=== PATIENT | female | born 1950 | race Caucasian/White ===

== ENCOUNTER → 2016-08-28 | Outpatient (CLI) | payer BC, MEDICARE ==
--- NOTE | 2016-08-31 11:08 | EM ---
24 HOUR DCG DATE OF SERVICE: AGE: 66Y SEX: F INDICATIONS: The basic rhythm is normal sinus rhythm with normal VA interval and QRS duration and normal ST-T waves. The average heart rate during the recording is 64 beats per minute with a minimum heart rate of 45 and maximum heart rate of 99 beats per minute is noted. Multiple frequent supraventricular atrophic beats are noted, and they occur in the form of couplets and triplets and intermittent short runs of nonsustained atrial tachycardia at a rate of 100 beats per minute were noted. ( ) PVCs are recorded. No symptoms were recorded by the patient.
== END | disposition home or self-care (01) ==
LOC: RADECHMAIN 11:56
PROVIDERS: ATTEND Internal Medicine
DX: I48.91 Unspecified atrial fibrillation (principal)
CPT/HCPCS: 93225; 93226

== ENCOUNTER → 2016-10-10 | Outpatient (CLI) | payer MEDICARE ==
--- NOTE | 2016-10-10 09:47 | BD ---
EXAMINATION TYPE: MG DEXA axial skeleton. DATE OF EXAM: 10/10/2016 8:14 AM COMPARISON: NONE CLINICAL HISTORY: Height: 64.5 IN Weight: 167 LBS FRAX RISK QUESTIONS: Alcohol (3 or more units per day): NO Family History (Parent hip fracture): YES MOTHER Glucocorticoids (More than 3mos): NO (Ex: prednisone, prednisolone, methylprednisolone, dexamethasone, and hydrocortisone). History of Fracture in Adulthood: NO Secondary Osteoporosis: 1. Type 1 Diabetes: NO 2. Hyperthyroidism: NO 3. Menopause before 45: NO 4. Malnutrition: NO 5. Chronic liver disease: NO Rheumatoid Arthritis: NO Current Tobacco Use: NO RISK FACTORS HISTORY OF: Active: YES Postmenopausal woman: AGE 53 MEDICATIONS: Additional Medications: MULTI VIT, HIGH BLOOD PRESSURE MED EXAM MEASUREMENTS: Bone mineral densitometry was performed using the [facility]. Bone mineral density as measured about the Lumbar spine is: ----- L1-L4(G/cm2): 1.092 T Score Values are as follows: ----- L2: -1.7 ----- L3: -0.5 ----- L4: 0.1 ----- L1-L4: -0.7 Bone mineral density BASELINE Bone mineral density about the R hip (g/cm2): 0.842 Bone mineral density about the L hip (g/cm2): 0.822 T Score values are as follows: -----R Neck: -1.4 -----L Neck: -1.6 -----R Intertrochanter: -2.1 -----L Intertrochanter: -2.2 Bone mineral density BASELINE IMPRESSION: Osteopenia (T Score between -2.5 and -1 as noted by T score values There is slightly increased risk of fracture and the patient may be considered for treatment. Re-Screen 1-2 years. NOTE: T-SCORE=SD OF THE YOUNG ADULT MEAN.
--- NOTE | 2016-10-11 09:28 | MM ---
Reason for exam: screening (asymptomatic). Last mammogram was performed 7 months ago. History: Patient is postmenopausal. Physical Findings: A clinical breast exam by your physician is recommended on an annual basis and results should be correlated with mammographic findings. MG 3D Screening Mammo W/Cad Bilateral CC and MLO view(s) were taken. Prior study comparison: March 06, 2016, left breast MG 3d diag mammo w/cad LT. September 01, 2015, bilateral MG screening mammo w CAD. June 09, 2014, bilateral MG screening mammo w CAD. March 03, 2013, bilateral digital screening mammo w/CAD. There are scattered fibroglandular densities. No significant changes when compared with prior studies. ASSESSMENT: Negative, BI-RAD 1 RECOMMENDATION: Routine screening mammogram of both breasts in 1 year.
== END | disposition home or self-care (01) ==
LOC: RADMAMWWP 08:12
PROVIDERS: ATTEND Internal Medicine
DX: Z12.31 Encounter for screening mammogram for malignant neoplasm of breast (principal); M85.80 Other specified disorders of bone density and structure, unspecified site
CPT/HCPCS: 77080; 77063; G0202

== ENCOUNTER → 2017-12-10 | Outpatient (CLI) | payer MEDICARE ==
--- NOTE | 2017-12-11 13:03 | MM ---
Reason for exam: screening (asymptomatic). Last mammogram was performed 1 year and 2 months ago. History: Patient is postmenopausal. Physical Findings: A clinical breast exam by your physician is recommended on an annual basis and results should be correlated with mammographic findings. MG 3D Screening Mammo W/Cad Bilateral CC and MLO view(s) were taken. Prior study comparison: October 10, 2016, bilateral MG 3d screening mammo w/cad. March 06, 2016, left breast MG 3d diag mammo w/cad LT. There are scattered fibroglandular densities. No significant changes when compared with prior studies. ASSESSMENT: Benign, BI-RAD 2 RECOMMENDATION: Routine screening mammogram of both breasts in 1 year.
== END | disposition home or self-care (01) ==
LOC: RADMAMWWP 09:35
PROVIDERS: ATTEND Obstetrics & Gynecology
DX: Z12.31 Encounter for screening mammogram for malignant neoplasm of breast (principal)
CPT/HCPCS: 77063; 77067

== ENCOUNTER → 2019-04-14 | Outpatient (CLI) | payer MEDICARE ==
--- NOTE | 2019-04-15 10:23 | MM ---
Reason for exam: screening (asymptomatic). Last mammogram was performed 1 year and 4 months ago. History: Patient is postmenopausal. Physical Findings: A clinical breast exam by your physician is recommended on an annual basis and results should be correlated with mammographic findings. MG 3D Screening Mammo W/Cad Bilateral CC and MLO view(s) were taken. XCCL view(s) were taken of the left breast. Prior study comparison: December 10, 2017, bilateral MG 3d screening mammo w/cad. October 10, 2016, bilateral MG 3d screening mammo w/cad. The breast tissue is heterogeneously dense. This may lower the sensitivity of mammography. Benign appearing bilateral calcifications. No suspicious abnormality. No significant changes when compared with prior studies. ASSESSMENT: Benign, BI-RAD 2 RECOMMENDATION: Routine screening mammogram of both breasts in 1 year.
== END | disposition home or self-care (01) ==
LOC: RADMAMWWP 12:29
PROVIDERS: ATTEND Internal Medicine
DX: Z12.31 Encounter for screening mammogram for malignant neoplasm of breast (principal)
CPT/HCPCS: 77063; 77067

== ENCOUNTER → 2019-09-02 | Outpatient (CLI) | payer MEDICARE ==
--- NOTE | 2019-09-02 18:28 | CONS ---
CONSULTATION REASON FOR CONSULTATION: Sleep apnea. This 69-year-old female patient has a history of paroxysmal atrial fibrillation. The patient underwent cardiac ablation by Dr. Adames in [place] back in 2007. She did well for quite some time. Subsequently she started having paroxysmal atrial fibrillation. The patient is currently in sinus rhythm. Nevertheless, she has been evaluated by Dr. Saini at [facility] and the patient is being considered for another ablation. During the course of her treatment she was asked to undergo a sleep study to rule out obstructive sleep apnea. She does have snoring. She grinds her teeth. She goes to bed around midnight. She wakes up at 8:00 in the morning. No major hypersomnia or sleepiness during the day. Her weight is stable at around 170. She prefers to sleep on her side. She takes a brief nap in the afternoon. No history of any motor vehicle accident because of feeling drowsy or sleepy. Denies waking up in the middle of the night gasping for air or choking sensation. PAST MEDICAL HISTORY: Paroxysmal atrial fibrillation and hypertension. PAST SURGICAL HISTORY: Past surgical history includes cardiac ablation of atrial fibrillation. This was done in 2001. DRUG ALLERGIES: CONTRAST DYE, ZOLOFT AND CARDIZEM. OUTPATIENT MEDICATION LIST: Outpatient medication list includes metoprolol ER 25 mg 2 in the morning, once in the afternoon, ramipril 10 mg p.o. daily, Eliquis 5 mg p.o. twice a day. SOCIAL HISTORY: Nonsmoker. No history of alcoholism. No history of IV drugs. FAMILY HISTORY: Negative for sleep apnea. REVIEW OF SYSTEMS: Fourteen-point review of system was done. Positive findings were all mentioned above in the history of present illness. The patient has no choking or gasping for air sensation at nighttime. No restlessness in the lower extremities. No sleepwalking or sleeptalking. She does grind her teeth. No anxiety, no panic, no palpitations, no heartburn. No depression. PHYSICAL EXAMINATION: VITAL SIGNS: BP is 197/75, pulse 65, respirations 16, temperature 98.1, saturation 98% on room air. Height is 5 feet 4 inches, weight 169 and neck size is 14-1/2 inches. Her current Lewisburg Score is 14. GENERAL APPEARANCE: Calm, comfortable. HEAD: Atraumatic, normocephalic. NECK: Supple. No JVD. No goiter or neck masses. Mallampati class I. LUNGS: Clear to auscultation. HEART: Heart sounds are regular rate and rhythm. Normal S1, S2. No S3, S4. No murmurs. ABDOMEN: Soft, nontender. No organomegaly. EXTREMITIES: No edema. No cyanosis or clubbing. NEUROLOGIC: Alert and oriented. No focal neurological deficits. PSYCHIATRIC: Negative for anxiety or depression. IMPRESSION: 1. Obstructive sleep apnea clinically suspected. Currently under investigation. She does have snoring and some increased fatigue and sleepiness. Lewisburg score is 14. 2. Paroxysmal atrial fibrillation, currently in sinus rhythm. The patient is undergoing a cardiac ablation procedure at [facility]. 3. Hypertension with acute hypertensive reaction today, probably due to white coat effect. This is something that she needs to follow up on on an outpatient basis. PLAN: 1. Proceed with a screening polysomnogram. 2. Implement good sleep hygiene measures. 3. Will review the results and will get back to the patient if further treatment is needed. MMODL / IJN: [id number] /
== END | disposition home or self-care (01) ==
LOC: SLEEP 14:03
PROVIDERS: ATTEND Internal Medicine Critical Care Medicine
DX: R06.83 Snoring (principal); R53.83 Other fatigue; I48.0 Paroxysmal atrial fibrillation; I10 Essential (primary) hypertension; Z98.890 Other specified postprocedural states; Z79.01 Long term (current) use of anticoagulants; Z79.899 Other long term (current) drug therapy; Z91.041 Radiographic dye allergy status; Z88.2 Allergy status to sulfonamides; Z88.8 Allergy status to other drugs, medicaments and biological substances
CPT/HCPCS: 99211

== ENCOUNTER → 2019-09-08 | Outpatient (CLI) | payer MEDICARE ==
[2019-09-08 08:59] LABS: HCT 44.7 % (34.0-46.0); HGB 14.3 gm/dL (11.4-16.0); MCH 29.4 pg (25.0-35.0); MCHC 32.1 g/dL (31.0-37.0); MCV 91.6 fL (80.0-100.0); Mean Platelet Volume 7.7; Platelet Count 246 k/uL (150-450); RBC 4.88 m/uL (3.80-5.40); RDW 12.4 % (11.5-15.5); WBC 7.1 k/uL (3.8-10.6)
[2019-09-08 09:07] LABS: Prothrombin Time 10.2 sec (9.0-12.0)
[2019-09-08 09:12] LABS: African American GFR (CKD) >90 (>60 ml/min/1.73 sqM); Anion Gap 9 mmol/L; Blood Urea Nitrogen 24 mg/dL (7-17); Calcium 9.6 mg/dL (8.4-10.2); Carbon Dioxide 27 mmol/L (22-30); Chloride 104 mmol/L (98-107); Glucose 106 mg/dL (74-99); Non-African American GFR(CKD) 90 (>60 ml/min/1.73 sqM); Potassium 4.2 mmol/L (3.5-5.1); Sodium 140 mmol/L (137-145)
== END | disposition home or self-care (01) ==
LOC: LABWHC1 07:59
PROVIDERS: ATTEND Internal Medicine Cardiovascular Disease
DX: I48.0 Paroxysmal atrial fibrillation (principal)
CPT/HCPCS: 36415; 80048; 85027; 85610

== ENCOUNTER → 2020-07-26 | Outpatient (CLI) | payer MEDICARE ==
--- NOTE | 2020-07-27 11:47 | MM ---
Reason for exam: screening (asymptomatic). Last mammogram was performed 1 year and 3 months ago. History: Patient is postmenopausal. Physical Findings: A clinical breast exam by your physician is recommended on an annual basis and results should be correlated with mammographic findings. MG 3D Screening Mammo W/Cad Bilateral CC and MLO view(s) were taken. Prior study comparison: April 14, 2019, bilateral MG 3d screening mammo w/cad. December 10, 2017, bilateral MG 3d screening mammo w/cad. There are scattered fibroglandular densities. No significant changes when compared with prior studies. ASSESSMENT: Benign, BI-RAD 2 RECOMMENDATION: Routine screening mammogram of both breasts in 1 year.
== END | disposition home or self-care (01) ==
LOC: RADMAMWWP 11:33
PROVIDERS: ATTEND Internal Medicine
DX: Z12.31 Encounter for screening mammogram for malignant neoplasm of breast (principal)
CPT/HCPCS: 77063; 77067

== ENCOUNTER → 2020-10-04 | Outpatient (CLI) | payer MEDICARE ==
--- NOTE | 2020-10-04 12:37 | XR ---
Lumbar spine HISTORY: Pain 3 views lumbar spine Bone mineralization is reduced. There is a spinal curvature. Anterolisthesis grade 1 at L4-5. There i s multilevel spondylosis. Loss of disc height greatest at L5-S1 with associated vacuum phenomenon. Sc lerosis is present posterior elements. IMPRESSION: Degenerative disc disease, facet arthropathy, spinal listhesis, osteopenia and spinal cur vature.
--- NOTE | 2020-10-04 12:38 | XR ---
Bilateral hips HISTORY: Pain 2 views of each hip submitted. Calcification present in the pelvis may be related to fibroid. Bone mineralization is mildly reduced. Joint spaces and alignment are maintained, no fracture or dislocation. Soft tissue calcification pre sent in the proximal right lower extremity laterally may be due to injection granuloma. IMPRESSION: No acute abnormality.
== END | disposition home or self-care (01) ==
LOC: RADXRMAIN 12:05
PROVIDERS: ATTEND Internal Medicine
DX: M51.36 Other intervertebral disc degeneration, lumbar region (principal); M25.551 Pain in right hip; M47.816 Spondylosis without myelopathy or radiculopathy, lumbar region; M25.552 Pain in left hip; M43.16 Spondylolisthesis, lumbar region; M85.88 Other specified disorders of bone density and structure, other site; M43.8X6 Other specified deforming dorsopathies, lumbar region
CPT/HCPCS: 72100; 73521

== ENCOUNTER → 2021-07-12 | Outpatient (CLI) | payer MEDICARE ==
--- NOTE | 2021-07-12 15:44 | BD ---
EXAMINATION TYPE: Axial Bone Density DATE OF EXAM: 07/12/2021 COMPARISON: 10/10/2016 CLINICAL HISTORY: Height: 64 IN Weight: 168 LBS FRAX RISK QUESTIONS: Family History (Parent hip fracture): YES MOTHER RISK FACTORS HISTORY OF: Active: YES Postmenopausal woman: AGE 56 MEDICATIONS: Additional Medications: MULTI VIT, A FIB MEDS EXAM MEASUREMENTS: Bone mineral densitometry was performed using the [employer] [facility]. Bone mineral density as measured about the Lumbar spine is: ----- L1-L4(G/cm2): 1.053 T Score Values are as follows: ----- L2: -1.9 ----- L3: -0.9 ----- L4: -0.3 ----- L1-L4: -1.1 Bone mineral density has: Decreased -3.5% since study of: 10/10/2016 Bone mineral density about the R hip (g/cm2): 0.787 Bone mineral density about the L hip (g/cm2): 0.784 T Score values are as follows: -----R Neck: -1.8 -----L Neck: -1.8 -----R Total: -1.6 -----L Total: -1.6 Bone mineral density has: Decreased -4.6% since study of: 10/10/2016 IMPRESSION: Osteopenia (T Score between -2.5 and -1). There is slightly increased risk of fracture and the patient may be considered for treatment. Re-Screen 2-5 years. NOTE: T-SCORE=SD OF THE YOUNG ADULT MEAN.
== END | disposition home or self-care (01) ==
LOC: RADBDWWP 09:55
PROVIDERS: ATTEND Internal Medicine
DX: Z13.820 Encounter for screening for osteoporosis (principal); M85.80 Other specified disorders of bone density and structure, unspecified site
CPT/HCPCS: 77080

== ENCOUNTER → 2021-10-26 | Outpatient (CLI) | payer MEDICARE ==
--- NOTE | 2021-10-27 11:38 | MM ---
Reason for exam: screening (asymptomatic). Last mammogram was performed 1 year and 3 months ago. History: Patient is postmenopausal. Physical Findings: A clinical breast exam by your physician is recommended on an annual basis and results should be correlated with mammographic findings. MG 3D Screening Mammo W/Cad Bilateral CC and MLO view(s) were taken. Prior study comparison: July 26, 2020, bilateral MG 3d screening mammo w/cad. April 14, 2019, bilateral MG 3d screening mammo w/cad. The breast tissue is heterogeneously dense. This may lower the sensitivity of mammography. Stable benign calcifications. There is no discrete abnormality. No significant changes when compared with prior studies. ASSESSMENT: Benign, BI-RAD 2 RECOMMENDATION: Routine screening mammogram of both breasts in 1 year.
== END | disposition home or self-care (01) ==
LOC: RADMAMWWP 09:04
PROVIDERS: ATTEND Internal Medicine
DX: Z12.31 Encounter for screening mammogram for malignant neoplasm of breast (principal)
CPT/HCPCS: 77063; 77067

== ENCOUNTER → 2023-03-19 | Outpatient (CLI) | payer MEDICARE ==
[2023-03-19 16:33] LABS: BUN/Creat Ratio 17.89 Ratio (12.00-20.00); Blood Urea Nitrogen 16.1 mg/dL (9.0-27.0); Chloride 105 mmol/L (96-109); Chol/HDL Ratio 1.99 Ratio; Glucose 95 mg/dL (70-110); LDL Cholesterol,Calculated 66.4 mg/dL (0.0-131.0); Potassium 4.4 mmol/L (3.5-5.5); Sodium 143 mmol/L (135-145); VLDL Calculation 15.72 mg/dL (5.00-40.00)
[2023-03-19 16:34] LABS: ALT 24 U/L (8-44); AST 21 U/L (13-35); Albumin 4.8 d/dL (3.8-4.9); Albumin/Globulin Ratio 2.67 Ratio (1.60-3.17); Alkaline Phosphatase 104 U/L (41-126); Bilirubin, Conjugated <0.20 mg/dL (0.20-0.40); Bilirubin,Unconjugated >0.30 mg/dL (0.20-1.00); Calcium 9.7 mg/dL (8.7-10.3); Carbon Dioxide 26.5 mmol/L (21.6-31.8); Globulin 1.8 d/dL (1.6-3.3); Total Bilirubin 0.5 mg/dL (0.3-1.2); Total Protein 6.6 d/dL (6.2-8.2)
[2023-03-19 17:40] LABS: Basophils # (A) 0.05 X 10*3/uL (0.00-0.10); Basophils % (A) 0.8 %; Eosinophils # (A) 0.06 X 10*3/uL (0.04-0.35); HCT 42.7 % (37.2-46.3); HGB 13.3 d/dL (12.0-15.0); Lymphocytes # (A) 0.98 X 10*3/uL (0.90-5.00); Lymphocytes % (A) 16.5 %; MCH 30.2 pg (27.0-32.0); MCHC 31.1 d/dL (32.0-37.0); Mean Platelet Volume 9.9 FL (9.5-12.2); Monocytes # (A) 0.43 X 10*3/uL (0.20-1.00); Monocytes % (A) 7.2 %; NRBC Per 100 WBC 0 X 10*3/uL (0.00-0.01); Platelet Count 237 X 10*3/uL (140-440); RDW 12.8 % (11.5-14.5); WBC 5.95 X 10*3/uL (4.50-10.00)
== END | disposition home or self-care (01) ==
LOC: LABWHC1 11:00
PROVIDERS: ATTEND Family Medicine
DX: I48.0 Paroxysmal atrial fibrillation (principal); Z79.899 Other long term (current) drug therapy
CPT/HCPCS: 36415; 80048; 80061; 80076; 84443; 85025

== ENCOUNTER → 2023-04-17 | Outpatient (CLI) | payer MEDICARE | LOC: CPPFTMAIN 07:22 | PROVIDERS: ATTEND Internal Medicine Cardiovascular Disease | DX: Z79.899 Other long term (current) drug therapy (principal); Z88.8 Allergy status to other drugs, medicaments and biological substances | CPT/HCPCS: 94060; 94726; 94729 ==

== ENCOUNTER → 2023-04-25 | Outpatient (CLI) | payer MEDICARE ==
--- NOTE | 2023-04-26 11:06 | MM ---
Reason for Exam: Screening (asymptomatic). Last mammogram was performed 1 year(s) and 6 month(s) ago. Patient History: Menarche at age 14. First Full-Term at age 31. Late child-bearing (after 30). Postmenopausal. Risk Values: Radha 5 year model risk: 2.4%. NCI Lifetime model risk: 6.6%. Prior Study Comparison: 04/14/2019 Bilateral Screening Mammogram, [facility]. 07/26/2020 Bilateral Screening Mammogram, [facility]. 10/26/2021 Bilateral Screening Mammogram, [facility]. Tissue Density: The breast tissue is heterogeneously dense. This may lower the sensitivity of mammography. Findings: Analyzed By CAD. Right breast: Focal mass, 12 cm from the nipple measuring 12 mm on CC view and 10.5 cm from the nipple on MLO view in the upper outer quadrant. Left breast: There is no suspicious group of microcalcifications or new suspicious mass. Overall Assessment: Incomplete: need additional imaging evaluation, BI-RAD 0 Management: Diagnostic Breast Ultrasound of the right breast. [facility] will attempt to contact patient to return for supplemental views and ultrasound if indicated. Patient should continue monthly self-breast exams. A clinical breast exam by your physician is recommended on an annual basis. This exam should not preclude additional follow-up of suspicious palpable abnormalities. Note on Radha scores and lifetime risk: 1. A Radha score greater than 3% is considered moderate risk. If this is the case, consider specialist referral to assess eligibility for a risk reducing agent. 2. If overall lifetime risk for the development of breast cancer is 20% or higher, the patient may qualify for future screening with alternating mammogram and breast MRI. Electronically signed and approved by: Bairon Trinidad DO
== END | disposition home or self-care (01) ==
LOC: RADMAMWWP 08:17
PROVIDERS: ATTEND Obstetrics & Gynecology
DX: Z12.31 Encounter for screening mammogram for malignant neoplasm of breast (principal); Z78.0 Asymptomatic menopausal state
CPT/HCPCS: 77063; 77067

== ENCOUNTER → 2023-05-03 | Outpatient (CLI) | payer MEDICARE ==
--- NOTE | 2023-05-03 13:36 | USB ---
Reason for Exam: Additional evaluation requested from abnormal screening. Patient History: Menarche at age 14. First Full-Term at age 31. Late child-bearing (after 30). Postmenopausal. Risk Values: Radha 5 year model risk: 2.4%. NCI Lifetime model risk: 6.3%. Technique: Method: Targeted. Prior Study Comparison: 07/26/2020 Bilateral Screening Mammogram, [facility]. 10/26/2021 Bilateral Screening Mammogram, [facility]. 04/25/2023 Bilateral MG 3D screening mammo w/cad, [facility]. Findings: The upper outer quadrant of the right breast, the axilla of the right breast and the retroareolar of the right breast were scanned. Technique utilized:US breast workup limited RT Image; Ultrasound imaging of: Area of concern, retroareolar region and axilla. There is a hypoechoic mass with focus of internal color Doppler flow measuring 9 x 9 x 5 mm at 10:00 9 cm from the nipple. Additional tiny anechoic cyst at 12:00 8 cm nipple. No suspicious lymph nodes identified. Overall Assessment: Highly suggestive of malignancy, BI-RAD 5 Management: Ultrasound Core Biopsy of the right breast. A clinical breast exam by your physician is recommended on an annual basis and results should be correlated with mammographic findings. This exam should not preclude additional follow-up of suspicious palpable abnormalities. Results were given to the patient verbally at the time of exam. Electronically signed and approved by: Bairon Trinidad DO
== END | disposition home or self-care (01) ==
LOC: RADUSWWP 12:55
PROVIDERS: ATTEND Obstetrics & Gynecology
DX: R92.8 Other abnormal and inconclusive findings on diagnostic imaging of breast (principal); Z78.0 Asymptomatic menopausal state

== ENCOUNTER → 2023-05-15 | Day surgery (SDC) | payer MEDICARE | LOC: RADUSWWP 12:41 | PROVIDERS: ATTEND Surgery | DX: D05.11 Intraductal carcinoma in situ of right breast (principal) | CPT/HCPCS: 88305; 77065; 19083; A4648; 88341; 88342 ==

== ENCOUNTER 2023-06-22 06:11 | Day surgery (SDC) | payer MEDICARE ==
[~2023-06-22 06:11] MED LIST: DEXAMETHASONE SOD PHOSPHATE 4 MG/ML 1 ML VIAL IV ONE; HEPARIN SODIUM,PORCINE 5,000 UNIT/ML 1 ML VIAL SQ PRN; LACTATED RINGERS 1,000 ML IV SCH; LIDOCAINE 1% (10MG/ML) FOR IV START INTRADERMA PRN; ONDANSETRON 4 MG/2 ML VIAL IVP ONE; droPERidol 5 MG/2 ML VIAL IVP ONE
[2023-06-22] MEDS ORDERED: HYDROmorphone 0.5 MG/0.5 ML SYRINGE IVP PRN (07:00)
[2023-06-22] MEDS ORDERED: ALPRAZolam 0.25 MG TAB ONE (07:05)
[2023-06-22] MEDS: ACETAMINOPHEN TAB 500 MG TAB PO PRN ×2 (07:08→08:34)
[2023-06-22 07:27] LABS: Potassium 3.8 mmol/L (3.5-5.1)
--- NOTE | 2023-06-22 07:38 | P.NAPBC ---
NAPBC Queries - NAPBC Queries Was patient's case review presented at [facility] tumor board? If no, comment.: Yes Was patient's pathology reviewed at [facility]? If no, comment.: Yes Was breast conservation surgery offered? If no, comment.: Yes Was sentinel node biopsy offered? If no, comment.: Yes Was diagnosis confirmed by percutaneous core biopsy? If no, comment.: Yes Is patient mastectomy patient?: No Was a preop referral to reconstructive surgeon offered?: Yes Clinical Stage: 1
[2023-06-22] MEDS ORDERED: LIDOCAINE 1% INJ 10MG/ML (20 ML MDV) SQ ONE (07:48)
[2023-06-22 08:01] VITALS: RESP 16
[2023-06-22] MEDS ORDERED: PROPOFOL 10 MG/ML 20 ML VIAL IV ONE (10:34)
[2023-06-22] MEDS ORDERED: LIDOCAINE 1% INJ 10MG/ML (20 ML MDV) ONE (10:34)
[2023-06-22] MEDS ORDERED: MIDAZOLAM 2 MG/2 ML VIAL ONE (10:34)
[2023-06-22] MEDS ORDERED: fentaNYL (PF) 50 MCG/ML 2 ML AMP ONE (10:34)
[2023-06-22] MEDS ORDERED: BUPIVACAINE (PF) 0.25% 30 ML VIAL SQ ONE (11:01)
[2023-06-22] MEDS ORDERED: ACETAMINOPHEN TAB 325 MG TAB PO PRN (11:48)
[2023-06-22] MEDS ORDERED: NALOXONE 0.4 MG/ML 1 ML VIAL IV PRN (11:48)
--- NOTE | 2023-06-22 11:51 | P.OP ---
Date of Procedure: 06/22/23 Procedure(s) Performed: PREOPERATIVE DIAGNOSIS: Right breast cancer POSTOPERATIVE DIAGNOSIS: Same PROCEDURE: Right Breast wire localization lumpectomy SURGEON: Michael EBL: Minimal ANESTHESIA: General COMPLICATIONS: None OPERATIVE PROCEDURE: Patient was placed on the operating room table in the supine position. The wire entrance site was then addressed. This was present at the 8:00 location. A curvilinear incision was made adjacent to the wire entrance site. I followed the wire down into the breast tissue. An adequate lumpectomy specimen then took place around the wire. Margins of 1.5-2 cm worth attempted to be achieved. Palpation of the specimen suggested that the medial margin was somewhat close. I took an additional margin medially and this margin was painted the appropriate color on the new margin side. The initial specimen was also painted the appropriate 6 colors. Clips were used to identify the lumpectomy cavity. The clip was confirmed to be within the lumpectomy specimen by radiology. The subcutaneous tissues were closed using 3-0 Vicryl sutures. The skin was closed using a running 4-0 Monocryl stitch. Skin glue was then applied. DISPOSITION: Stable to recovery room
[2023-06-22 11:54] VITALS: TEMP 97.1
[2023-06-22 13:58] VITALS: BP 161/70; PULSE 55
--- NOTE | 2023-06-29 13:50 | MM ---
Pathology Description: Location: 9 o'clock, posterior, axillary tail. Approach: Lateral to Medial Needle Type: 7 cm Kopan wire loc no sen node...clip carla us bx is coil hydromark The procedure of needle localization with wire placement and than surgical excision was explained to the patient. Benefits, alternatives, and risks were discussed. An informed consent was then obtained. The shortest pathway for procedure was chosen. The overlying skin was prepped and draped in usual sterile fashion. Lidocaine was used as anesthetic into the skin and subcutaneous tissue up to the level of area of concern. A 7 cm needle was used. It was placed via a lateral approach under mammographic guidance. Subsequent 90 degrees mammogram show the needle to be in satisfactory position relative to the targeted area. At this point, wire was placed and the needle was withdrawn. The wire was fixed to patient's skin. Images were marked for surgeon. The patient tolerated the procedure well without any immediate complication. The patient was kept in the radiology department for short stay after the procedure and then taken to surgery for surgical excision. There is and wire are identified in specimen mammogram. The patient was kept in hospital for short stay after the procedure and then discharged home in stable condition. Impression: Successful, uncomplicated needle localization with wire placement and surgical excision of mass in the right breast, full pathology results to follow. Pathology Results: Result: Malignant, Invasive ductal carcinoma. A. RIGHT BREAST, NEW MEDIAL MARGIN, EXCISION: Benign breast tissue with fibrocystic change having columnar cell change, usual ductal hyperplasia and focal fibroadenomatoid hyperplasia and focal microcalcification. New medial margin, negative for malignancy. Focal sclerosing adenosis present. B. RIGHT BREAST, LUMPECTOMY: Invasive well differentiated ductal carcinoma with focal microcalcification, Grade 1 (See Surgical Pathology Cancer Case Summary and Comment). Rare focus of intraductal atypia, cannot exclude intermediate grade DCIS. All margins negative for in situ or invasive carcinoma. Overall Assessment: Malignant Management: Surgical Consultation of the right breast. Electronically signed and approved by: Bairon Trinidad DO
== END 2023-06-22 13:30 | disposition home or self-care (01) ==
LOC: OR 06:11
PROVIDERS: ATTEND Surgery
DX: C50.911 Malignant neoplasm of unspecified site of right female breast (principal); N60.21 Fibroadenosis of right breast; R92.0 Mammographic microcalcification found on diagnostic imaging of breast; I10 Essential (primary) hypertension; E78.5 Hyperlipidemia, unspecified; I48.91 Unspecified atrial fibrillation; Z85.828 Personal history of other malignant neoplasm of skin; Z79.01 Long term (current) use of anticoagulants; Z88.8 Allergy status to other drugs, medicaments and biological substances; Z88.9 Allergy status to unspecified drugs, medicaments and biological substances; Z91.041 Radiographic dye allergy status
CPT/HCPCS: 19301; 80051; 88307; 76098; 19281; C1819; J2250; J1100; J0690; J2405; J2001; J3010; J2704; J0665

== ENCOUNTER → 2023-11-13 | Outpatient (CLI) | payer MEDICARE ==
--- NOTE | 2023-11-13 16:13 | BD ---
EXAMINATION TYPE: Axial Bone Density DATE OF EXAM: 11/13/2023 CLINICAL HISTORY: 73 years old Female. ICD-10 CODE: M81.0 AGE-RELATED OSTEOPOROSIS W/O CURRENT PATHO LO Height: 63.5" Weight: 164lbs FRAX RISK QUESTIONS: Alcohol (3 or more units per day): No Family History (Parent hip fracture): Yes, mother Glucocorticoids (More than 3mos): No (Ex: prednisone, prednisolone, methylprednisolone, dexamethasone, and hydrocortisone). History of Fracture in Adulthood: No Secondary Osteoporosis: 1. Type 1 Diabetes: No 2. Hyperthyroidism: No 3. Menopause before 45: No 4. Malnutrition: No 5. Chronic liver disease: No Rheumatoid Arthritis: No Current Tobacco Use: No RISK FACTORS HISTORY OF: Hip Fracture (Right/Left): No Spine Fracture: No History of Wrist Fracture: No Surgery to Spine/Hip(right/left)/Wrist (right/left): No MEDICATIONS: Thyroid Medications: No Osteoporosis Medications: No EXAM MEASUREMENTS: Bone mineral densitometry was performed using the [employer] [facility]. Bone mineral density as measured about the Lumbar spine is: ----- L1-L4(G/cm2): 1.085 T Score Values are as follows: ----- L1: -1.7 ----- L2: -1.7 ----- L3: -0.4 ----- L4: 0.3 ----- L1-L4: -0.8 Z Score Values are as follows: ----- L1: -0.3 ----- L2: -0.3 ----- L3: 1.0 ----- L4: 1.7 ----- L1-L4: 0.6 Bone mineral density has: increased 3.0% since study of: 07/12/2021 Bone mineral density about the R hip (g/cm2): 0.776 Bone mineral density about the L hip (g/cm2): 0.784 T Score values are as follows: -----R Neck: -1.8 -----L Neck: -1.6 -----R Total: -1.8 -----L Total: -1.8 Z Score values are as follows: -----R Neck: -0.2 -----L Neck: 0.0 -----R Total: -0.5 -----L Total: -0.4 Bone mineral density has: decreased -2.7% since study of: 07/12/2021 FRAX%s: The graph provided illustrates a 18.6% chance for a major osteoporotic fx and a 7.1% chance f or the hips probability for fx in 10 years time. IMPRESSION: Osteopenia (T Score between -2.5 and -1). There is slightly increased risk of fracture and the patient may be considered for treatment. Re-Screen 2-5 years. NOTE: T-SCORE=SD OF THE YOUNG ADULT MEAN.
== END | disposition home or self-care (01) ==
LOC: RADBDWWP 12:25
PROVIDERS: ATTEND Internal Medicine Hematology & Oncology
DX: C50.411 Malignant neoplasm of upper-outer quadrant of right female breast (principal); M85.89 Other specified disorders of bone density and structure, multiple sites; I48.91 Unspecified atrial fibrillation; M19.90 Unspecified osteoarthritis, unspecified site; I10 Essential (primary) hypertension; Z71.3 Dietary counseling and surveillance
CPT/HCPCS: 77080

== ENCOUNTER → 2023-12-06 | Outpatient (CLI) | payer MEDICARE ==
[2023-12-06 12:28] LABS: INR 1.1 (<1.2); Partial Thromboplastin Time 27.2 sec (22.0-30.0); Prothrombin Time 11.4 sec (10.0-12.5)
[2023-12-06 15:42] LABS: ALT 33 U/L (8-44); AST 21 U/L (13-35); Albumin 4.8 g/dL (3.8-4.9); Albumin/Globulin Ratio 2.67 Ratio (1.60-3.17); Alkaline Phosphatase 118 U/L (41-126); BUN/Creat Ratio 23.25 Ratio (12.00-20.00); Blood Urea Nitrogen 18.6 mg/dL (9.0-27.0); Calcium 9.9 mg/dL (8.7-10.3); Carbon Dioxide 26.4 mmol/L (21.6-31.8); Chloride 105 mmol/L (96-109); Globulin 1.8 g/dL (1.6-3.3); Glucose 95 mg/dL (70-110); Potassium 4.1 mmol/L (3.5-5.5); Sodium 144 mmol/L (135-145); Total Bilirubin 0.6 mg/dL (0.3-1.2); Total Protein 6.6 g/dL (6.2-8.2)
[2023-12-06 16:02] LABS: Basophils # (A) 0.04 X 10*3/uL (0.00-0.10); Basophils % (A) 0.7 %; Eosinophils # (A) 0.07 X 10*3/uL (0.04-0.35); Eosinophils % (A) 1.2 %; HCT 44.5 % (37.2-46.3); HGB 14.1 g/dL (12.0-15.0); Lymphocytes # (A) 0.82 X 10*3/uL (0.90-5.00); Lymphocytes % (A) 14.1 %; MCH 31.1 pg (27.0-32.0); MCHC 31.7 g/dL (32.0-37.0); MCV 98.2 FL (80.0-97.0); Monocytes % (A) 8.6 %; NRBC Per 100 WBC 0 X 10*3/uL (0.00-0.01); Neutrophils # (A) 4.36 X 10*3/uL (1.80-7.70); Neutrophils % (A) 74.9 %; Platelet Count 247 X 10*3/uL (140-440); RBC 4.53 X 10*6/uL (4.10-5.20); RDW 13.3 % (11.5-14.5); WBC 5.82 X 10*3/uL (4.50-10.00)
== END | disposition home or self-care (01) ==
LOC: LABWHC1 11:14
PROVIDERS: ATTEND Family Medicine
DX: Z01.812 Encounter for preprocedural laboratory examination (principal)
CPT/HCPCS: 36415; 80053; 83036; 85025; 85610; 85730

== ENCOUNTER → 2024-04-28 | Outpatient (CLI) | payer MEDICARE ==
--- NOTE | 2024-04-28 11:30 | MM ---
Reason for Exam: Additional evaluation requested from prior study. Last screening mammogram was performed 12 month(s) ago. Patient History: Menarche at age 14. First Full-Term at age 31. Late child-bearing (after 30). Postmenopausal. Breast cancer, right, age 73. Breast cancer, right, age 73. 06/22/2023, Lumpectomy on the Right side. 06/22/2023, Malignant MG pre op needle loc RT on the right side. 05/15/2023, Malignant US biopsy breast VAD RT on the right side. Prior Study Comparison: 10/10/2016 Bilateral Screening Mammogram, [facility]. 12/10/2017 Bilateral Screening Mammogram, [facility]. 04/14/2019 Bilateral Screening Mammogram, [facility]. 07/26/2020 Bilateral Screening Mammogram, [facility]. 10/26/2021 Bilateral Screening Mammogram, [facility]. 04/25/2023 Bilateral MG 3D screening mammo w/cad, [facility]. 05/15/2023 Right MG diagnostic mammo RT wo CAD, [facility]. Tissue Density: There are scattered areas of fibroglandular density. Findings: Analyzed By CAD. Postsurgical and posttreatment changes right breast. Distortion lateral posterior aspect right cc view likely corresponds to postsurgical scar given the surgical clips in this area. Scattered benign round calcifications on both sides. Otherwise, no significant change. Overall Assessment: Probably benign, BI-RAD 3 Management: Diagnostic Mammogram of the right breast in 6 months. Results were given to the patient verbally at the time of exam. Patient should continue monthly self-breast exams. A clinical breast exam by your physician is recommended on an annual basis. This exam should not preclude additional follow-up of suspicious palpable abnormalities. [facility], , 04/28/2024 11:27 AM. Electronically signed and approved by: Bianca Pedraza M.D. Radiologist
== END | disposition home or self-care (01) ==
LOC: RADMAMWWP 10:39
PROVIDERS: ATTEND Surgery
CPT/HCPCS: 77062; 77066

== ENCOUNTER → 2024-12-15 | Outpatient (CLI) | payer MEDICARE ==
--- NOTE | 2024-12-15 11:17 | MM ---
Reason for Exam: Follow-up at short interval from prior study. Last screening mammogram was performed 8 month(s) ago. Patient History: Menarche at age 14. First Full-Term at age 31. Late child-bearing (after 31). Postmenopausal. Breast cancer, right, age 73. Breast cancer, right, age 73. 06/22/2023, Lumpectomy on the Right side. 06/22/2023, Malignant MG pre op needle loc RT on the right side. 05/15/2023, Malignant US biopsy breast VAD RT on the right side. Prior Study Comparison: 04/25/2023 Bilateral MG 3D screening mammo w/cad, [facility]. 05/15/2023 Right MG diagnostic mammo RT wo CAD, [facility]. 04/28/2024 Bilateral MG 3D diag mammo w/cad THAI, [facility]. Tissue Density: Right: There are scattered areas of fibroglandular density. Findings: Analyzed By CAD. Stable distortion and surgical clips in the posterior right breast outer upper aspect Stable distortion and surgical clips in the posterior right breast outer upper aspect. No suspicious new mass or worrisome group of microcalcifications. Overall Assessment: Benign, BI-RAD 2 Management: Diagnostic Mammogram of both breasts in 5 months. Back on annual bilateral schedule. Results were given to the patient verbally at the time of exam. Patient should continue monthly self-breast exams. A clinical breast exam by your physician is recommended on an annual basis. This exam should not preclude additional follow-up of suspicious palpable abnormalities. Note on Radha scores and lifetime risk: 1. A Radha score greater than 3% is considered moderate risk. If this is the case, consider specialist referral to assess eligibility for a risk reducing agent. 2. If overall lifetime risk for the development of breast cancer is 20% or higher, the patient may qualify for future screening with alternating mammogram and breast MRI. [facility], , 12/15/2024 11:15 AM. Electronically signed and approved by: Sid Corcoran M.D.
== END | disposition home or self-care (01) ==
LOC: RADMAMWWP 10:48
PROVIDERS: ATTEND Surgery
DX: C50.911 Malignant neoplasm of unspecified site of right female breast (principal); R92.323 Mammographic fibroglandular density, bilateral breasts; Z78.0 Asymptomatic menopausal state; Z85.3 Personal history of malignant neoplasm of breast
CPT/HCPCS: 77061; 77065

== ENCOUNTER → 2024-12-31 | Outpatient (CLI) | payer MEDICARE | END | disposition home or self-care (01) | LOC: LABWHC1 13:43 | PROVIDERS: ATTEND Internal Medicine Cardiovascular Disease | DX: I48.91 Unspecified atrial fibrillation (principal) | CPT/HCPCS: 93005 ==